=== PATIENT | male | born 1965 | race Caucasian/White ===

== ENCOUNTER 2016-10-18 08:03 | Day surgery (SDC) | payer BC ==
[2016-10-18] MEDS ORDERED: MIDAZOLAM HCL 2MG/2ML VIAL IV ONE (14:00)
[2016-10-18] MEDS ORDERED: PROPOFOL 10 MG/ML VIAL IV ONE (14:00)
[2016-10-18] MEDS ORDERED: LIDOCAINE 2% MDV (20MG/ML) 20ML VIAL IV ONE (14:00)
--- NOTE | 2016-10-27 12:10 | Operative Note ---
DATE OF SURGERY: 10/18/2016 OPERATION: COLONOSCOPY to the cecum with cold snare polypectomy. INDICATION: Change in bowel habits with associated right-sided abdominal pain to rule out primary colon pathology. ANESTHESIA: Intravenous sedation was administered by the department of anesthesiology and included Diprivan titrated to effect. PROCEDURE: Following informed consent from this alert individual including a discussion of the risks and benefits of the procedure and an opportunity for the patient to ask questions, the patient was in the left lateral decubitus position. A digital rectal examination was performed. No abnormalities were noted. Following this, the Olympus [id number] video colonoscope was inserted into the rectum without resistance. The rectal mucosa had a normal appearance with normal folds and distensibility. The colonoscope was advanced around through the colon to the level of the cecum without much difficulty. Throughout the bowel the mucosa appeared normal, the folds were normal, and the bowel was fairly well distensible. The cecum was defined by noting the appendiceal orifice and ileocecal valve. The colon preparation was good. From the base of the cecum, the colonoscope was then withdrawn. In the proximal ascending colon, there was a sessile 5-6 mm polyp noted which was removed with cold snare polypectomy. No other changes were appreciated upon withdrawal of the colonoscope. Retroflexion in the rectum was endoscopically unremarkable. The endoscope was straightened and withdrawn. The patient tolerated the procedure well and was returned to the recovery area in stable condition. IMPRESSION: A 5-6 mm sessile polyp removed from the proximal ascending colon with cold snare polypectomy. Otherwise unremarkable examination to the cecum. RECOMMENDATIONS: further recommendations will be forthcoming pending results of pathology obtained today. The patient will also be following up with Dr. Morgan Miles. As always, thank you for allowing me to participate in the care of your patient. Ravi Rueda DO CC: Dr. Jd TAVERAS
== END 2016-10-18 10:02 | disposition home or self-care (01) ==
LOC: HOP 08:03
PROVIDERS: ATTEND Internal Medicine Gastroenterology
DX: D12.2 Benign neoplasm of ascending colon (principal)